=== PATIENT | male | born 1955 | race Asian ===

== ENCOUNTER 2025-06-07 21:08 | Emergency (ER) | payer OTHER ==
[~2025-06-07] VITALS: Ht 175.3 cm; Wt 76.2 kg
[2025-06-07 21:43] VITALS: O2SAT 99
[2025-06-07 22:40] LABS: CLARITY URINE CLEAR (CLEAR); COLOR URINE YELLOW (YELLOW); GLUCOSE URINE NEGATIVE (NEGATIVE); KETONES URINE NEGATIVE (NEGATIVE); LEUKOCYTE ESTERASE URINE NEGATIVE (NEGATIVE); NITRITE URINE NEGATIVE (NEGATIVE); OCCULT BLOOD URINE NEGATIVE (NEGATIVE); PH URINE 5.5 (4.5-8.0); PROTEIN URINE TRACE (NEGATIVE); SPECIFIC GRAVITY URINE 1.016 (1.005-1.030); UROBILINOGEN URINE 0.2 E.U./dL (0.2-1.0)
[2025-06-07 22:46] LABS: BASOPHILS % 1.0 % (0.0-2.0); EOSINOPHILS % 0.5 % (0.0-5.0); HEMATOCRIT. 41.1 % (42.0-52.0); HEMOGLOBIN. 14.6 g/dL (14.0-18.0); LYMPHOCYTES % 17.0 % (20.0-50.0); MEAN PLATELET VOLUME 7.9 fl (7.4-10.4); MONOCYTES % 8.4 % (2.0-8.0); NEUTROPHILS % 73.1 % (40.0-76.0); PLATELET 296 x1000/uL (130-400); RED BLOOD CELL COUNT 4.67 mill/uL (4.7-6.1); RED CELL DISTRIBUTION WIDTH 15.3 % (11.6-14.6)
[2025-06-07 22:49] LABS: BACTERIA URINE NONE SEEN; RBC URINE NONE SEEN /hpf (0-2); SQUAMOUS EPITHELIAL CELL URINE NONE SEEN /lpf (RARE/1+); WBC URINE 0-2 /hpf (0-2)
[2025-06-07 22:52] LABS: *AMPHETAMINES SCREEN URINE NEGATIVE (NEGATIVE); *BARBITURATES SCREEN URINE NEGATIVE (NEGATIVE); *BENZODIAZEPINES SCREEN URINE NEGATIVE (NEGATIVE); *COCAINE SCREEN URINE NEGATIVE (NEGATIVE); CANNABINOID URINE SCREEN PRESUMPTIVE POSITIVE (NEGATIVE); METHADONE URINE SCREEN NEGATIVE (NEGATIVE); OPIATES URINE SCREEN NEGATIVE (NEGATIVE); PHENCYCLIDINE URINE SCREEN NEGATIVE (NEGATIVE)
[2025-06-07 22:53] LABS: ECSTASY MDMA SCREEN URINE NEGATIVE (NEGATIVE)
[2025-06-07 22:57] LABS: INR 0.9
[2025-06-07 23:02] LABS: CREATININE 0.9 mg/dL (0.6-1.3)
[2025-06-07 23:03] LABS: ETHANOL BLOOD < 10 mg/dL (<10); TROPONIN I HIGH SENSITIVITY 6 ng/L (3.0-53); UREA NITROGEN BLOOD 13 mg/dL (9-23)
[2025-06-07] MEDS: HYDRALAZINE 20MG/ML VIAL IV ONE (23:38)
[2025-06-07] MEDS: ACETAMINOPHEN 325MG TABLET PO SCH (23:50)
[2025-06-08] MEDS: HYDRALAZINE 20MG/ML VIAL IV SCH (00:21)
[2025-06-08 01:18] VITALS: BP 165/67; PULSE 85; RESP 19; TEMP 36.5; O2SAT 97
== END 2025-06-08 01:51 | disposition home or self-care (01) ==
LOC: ER 21:08
DX: I10 Essential (primary) hypertension (principal); F17.200 Nicotine dependence, unspecified, uncomplicated; F12.90 Cannabis use, unspecified, uncomplicated; Z79.899 Other long term (current) drug therapy; Z98.890 Other specified postprocedural states
CPT/HCPCS: 80305; 80048; 81003; 80320; 85025; 85610; 85730; 84484; 36415; 71045; 93005; 96374; 99285; 96376; J0360 ×2; Z7610 ×3; A4606; G0480